=== PATIENT | female | born 1945 | race Caucasian/White ===

== ENCOUNTER 2023-09-16 22:44 | Inpatient (IN) | payer MEDICARE, OTHER, SELFPAY ==
[2023-09-16 19:00] VITALS: BP 163/88
--- NOTE | 2023-09-16 20:16 | ED.GENMED ---
History of Present Illness
General
Chief Complaint: DVT/Possible Blood Clot
Source: patient
Exam Limitations: none
Time Seen by Provider: 09/16/23 19:37
Travel History
Have you had any contact with someone who has COVID-19?: No
Do you have any symptoms of coronavirus? Fever > 100 degrees, chills, cough, shortness of breath, sore throat, loss of taste or smell, muscle aches, or headache?: No
History of Present Illness
History of Present Illness:
This is a 78 year old female that comes in with c/o right leg swelling and redness. State that she as just in [facility] Saturday - Saturday. States that she was discharge on Saturday. States that she told them on Saturday that her leg was more
swollen and increased redness. States that she was there for a UTI and is on Cefdinir 300mg. States that she is still having burning and that she has vomiting yesterday. States that she also has a headache. Denies any fever, chills, chest pain, SOB,
abd pain, nausea, diarrhea, dizziness.
Past History
Past History
ED Past Medical History: Asthma, CHF, HTN, NIDDM and Other (Neuropathy, PNA, DVT, Glaucoma, Sleep apnea)
ED Past Surgical History: Orthopedic (right knee replacement) and Tonsilectomy
Social History
Tobacco: Former smoker
Alcohol: None
Personal: Single
Living: with family
Review of Systems
Review of Systems
All Other Systems: ROS reviewed and negative except as documented in HPI and ROS
Constitutional: Reports no symptoms; Denies fever or chills
EENT: Reports no symptoms
Respiratory: Reports no symptoms; Denies cough or trouble breathing
Cardiac: Reports no symptoms; Denies chest pain
ABD/GI: Reports vomiting (Yesterday); Denies abdominal pain, nausea or diarrhea
: Reports dysuria and frequency; Denies urgency
Musculoskeletal: Reports edema (Right leg)
Skin: Reports other (redness of the right lower leg)
Neurological: Reports headache; Denies dizzy
Psychiatric: Reports no symptoms
Phy Exam
General Physical Exam
General Presentation: no apparent distress
General age: appears stated age
General Skin: warm and dry
General Habitus: elderly
General Mental: alert
General Hydration: dry mucous membranes
ENT Exam
ENT Exam: TM's normal, pharynx normal and neck supple
Eye Exam
Eye Exam: EOMI
Cardiovascular Exam
Cardiovascular Exam: regular rate/rhythm and normal peripheral pulses
Pulmonary Exam
Pulmonary Exam: lungs clear, no respiratory distress, no rales, chest non tender, no crackles, no rhonchi, no wheezing and no cough
Gastrointestinal Exam
Gastrointestinal Exam: normal bowel sounds, non tender, soft, no organomegaly, no pulsatile mass and non distended
Musculoskeletal Exam
Musculoskeletal Exam: full ROM and edema (of the right foot and lower leg +1pitting, )
Skin Exam
Skin Exam: normal color, warm/dry, no petechia, redness (of the right lower leg into the medial aspect of the posterior thigh. ) and other (Small healing wound on the right lateral heel)
Psychiatric Exam
Psychiatric Exam: normal mood/affect
Course
Orders/Labs/Results
Orders:
Orders
09/16/23 20:15
US Legs, Right [US Periph Venous LOWER Ext RT] Urgent
Comment:
Reason For Exam: Increased swelling, redness
09/16/23 20:19
Urinalysis Reflex To Culture Urgent
09/16/23 20:37
CMP [Comprehensive Metabolic Panel] Urgent
Complete Blood Count/No Diff Urgent
Lactic Acid Urgent
PT/INR [Prothrombin Time] Urgent
Blood Culture Q30M
CARIN Source: Blood/Venous
Specimen Description:
09/16/23 21:30
Blood Culture Q30M
CARIN Source: Blood/Venous
Specimen Description:
09/16/23 21:55
Piperacillin/Tazo 3.375 Gram [Zosyn] 3.375 gram in 50 ml IV NOW
Vancomycin 1 Gram/200 ml [Vancocin] 1 gram in 200 ml IV NOW
Abnormal Lab Results
09/16/23
20:37
RBC 3.25 L 10^6/uL
(4.20-5.40)
Hgb 9.8 L g/dL
(12.0-16.0)
Hct 29.6 L %
(37.0-47.0)
RDW 14.6 H %
(11.5-14.5)
PT 21.4 H Sec
(11.4-14.6)
Chloride 108 H mmol/L
(98-107)
Carbon Dioxide 21 L mmol/L
(22-30)
BUN 36 H mg/dl
(7-17)
Creatinine 1.7 H mg/dL
(0.6-1.0)
Lactic Acid 2.1 H mmol/L
(0.7-2.0)
Albumin 3.3 L g/dl
(3.5-5.0)
09/16/23 20:37
09/16/23 20:37
H/h low. PT 21.4 with INR 1.87, Dehydration. renal insufficiency, Lactic acid slightly elevated at 2.1,
Vital Signs
Initial and Last Documented VS:
Initial Vital Signs
Temp Pulse Resp BP Pulse Ox
97.8 F 70 18 163/88 98
09/16/23 19:00 09/16/23 19:00 09/16/23 19:00 09/16/23 19:00 09/16/23 19:00
Last Documented Vital Signs
Temp Pulse Resp BP Pulse Ox
97.8 F 84 25 156/63 97
09/16/23 19:00 09/16/23 20:45 09/16/23 20:45 09/16/23 20:44 09/16/23 20:45
MDM/Problems Addressed
Differential Diagnosis Includes:
Cellulitis, DVT, UTI
MDM/Problems Addressed:
This is a 78 year old female that comes in with c/o right leg swelling and increased redness. States that she was just discharged from [facility] on Saturday. States that she told them on Saturday that she has increased swelling and it was starting to
get more red but they did not listen. States that she also had a UTI and is on Cefdinir for the UTI but feels that this is not helping.
Will get labs, Urine and US
Back into see patient. Explained that her US is negative for DVT. This looks to be Cellulitis. Will start patient on antibiotics and admit. Hospitalist notified.
Chronic conditions affecting care: Other (history of DVT)
Acute Exacerbation and/or Progression of Chronic Illness:
NA
*Radiology
Radiology exam reviewed: radiology read reviewed (US= NO evidence of deep venous thrombosis of the right lower extremity. )
*Pulse Oximetry
Patient hypoxic: no
*EKG
Interpreted by ED Provider?: NA
Rate: EKG- N/A
*Drawing Supervisor Interpretation
Rate: normal
Heart Rate: 76
Rhythm: sinus
*Critical Care Note
Total Time (30-74mins, 75-104mins- exclusive of procedures): Not Applicable
ED Attending Note
-
Portions of this chart may have been created with voice recognition software.� Occasional wrong word or��sound alike� substitutions may have occurred due to the inherent limitations of voice recognition software.
Discharge Plan
Departure
Patient Disposition: Admit
Date of Disposition: 09/16/23
Time of Disposition: 21:59
Admit to: Med/Surg
Presentation/result/management discussed w/ accepting MD/DO: Hospitalist
Patient with high blood pressure during this ER visit?: Yes
Condition: Good
Covid-19: Not Applicable
Discharge Problem:
Cellulitis of leg, right
Referrals:
PRIVATE,PHYSICIAN [Family Provider] -
Interventions
Interventions:
*Risk Screen - Suicide Last Done: 09/16/23 19:00
*Neglect/Abuse Screening Last Done: 09/16/23 19:00
ED- Fall Risk Assessment Last Done: 09/16/23 20:20
ED- Cardiac Assessment Last Done: 09/16/23 20:20
ED-Musculoskeletal Assessment Last Done: 09/16/23 20:20
ED- Neurological Assessment Last Done: 09/16/23 20:20
ED- Pulmonary Assessment Last Done: 09/16/23 20:20
ED-Peripheral Vascular Assessment Last Done: 09/16/23 20:52
ED-Skin Assessment Last Done: 09/16/23 20:20
[2023-09-16 20:44] VITALS: BP 156/63
[2023-09-16 20:45] LABS: Hematocrit 29.6 % (37.0-47.0); Hemoglobin 9.8 g/dL (12.0-16.0); Mean Corp Hgb Conc. 33.1 g/dL (33.0-37.0); Mean Corpuscular Hgb 30.2 pg (27.0-31.0); Mean Corpuscular Volume 91.1 fL (81.0-99.0); Mean Platelet Volume 8.7 fL (7.4-10.4); Platelet Count 266 10^3/uL (130-400); Red Blood Cell Count 3.25 10^6/uL (4.20-5.40); Red Cell Dist. Width 14.6 % (11.5-14.5); White Blood Cell Count 8.3 10^3/uL (4.8-10.8)
[2023-09-16 20:49] VITALS: BMI 44.6
[2023-09-16 20:58] LABS: INR 1.87; PT 21.4 Sec (11.4-14.6)
[2023-09-16 21:01] LABS: Lactic Acid 2.1 mmol/L (0.7-2.0)
[2023-09-16 21:03] LABS: ALT (SGPT) 19 U/L (0-35); AST (SGOT) 33 U/L (14-36); Albumin 3.3 g/dl (3.5-5.0); Alkaline Phosphatase 72 U/L (38-126); Blood Urea Nitrogen 36 mg/dl (7-17); Calcium 8.9 mg/dl (8.4-10.2); Carbon Dioxide 21 mmol/L (22-30); Chloride 108 mmol/L (98-107); Estimated Creatinine Clearance 29 ml/min; Glucose 98 mg/dl (70-99); Potassium 4.5 mmol/L (3.5-5.1); Sodium 137 mmol/L (135-145); Total Bilirubin 0.5 mg/dl (0.2-1.3); Total Protein 6.3 g/dl (6.3-8.2); eGFR 30.89
[2023-09-16 21:54] VITALS: BP 128/58
[2023-09-16 22:00] VITALS: BP 119/53
[2023-09-16] MEDS: ZOSYN 50 IV (22:04)
--- NOTE | 2023-09-16 22:13 | HPS.HSE ---
Family Physician
-
Family Physician: PHYSICIAN PRIVATE
Chief Complaint
-
Swollen red Rt Leg
History of Present Illness
78F HX CHF, HTN, T2DM with neuropathy , DVT pw paifull swollen red Rt Callie
She was admitted to [facility] Saturday09/09/23 - 09/13/23Saturday for UTI and is on Cefdinir 300mg
Reports is still having dysuria and vomiting yesterday.
ROS
Denies any fever, chills, chest pain, SOB, abd pain, nausea, diarrhea, dizziness.
Medical History
Past Medical History
Past Medical History: Reports Other
Additional Past Medical History:
Asthma, CHF, HTN, NIDDM and Other (Neuropathy, PNA, DVT, Glaucoma, Sleep apnea)
Past Surgical History: Reports Other
Additional Past Surgical History:
Orthopedic (right knee replacement) and Tonsillectomy
Social History
Tobacco: Former Smoker
Alcohol: None
Personal: Single
Living: With Family
Family History
Family History: Not pertinent
Allergies / Home Medications
Allergies reflects when Allergies were last updated in [facility].
Home Medications with original date entered in [facility]
Allergy/Medication List:
Allergies
Allergy/AdvReac Type Severity Reaction Status Date / Time
Iodinated Contrast Media Allergy Unknown Verified 09/16/23 19:08
If medication reconciliation has not been performed, why?: Medication List N/A
Review of Systems
-
Constitutional: Reports No Symptoms
EENT: Reports No Symptoms
Respiratory: Reports No Symptoms
Cardiac: Reports No Symptoms
Abdomen/GI: Reports No Symptoms
: Reports No Symptoms
Musculoskeletal: Reports No Symptoms
Skin: Reports See HPI
Neurological: Reports No Symptoms
Endocrine: Reports No Symptoms
Hematologic/Lymphatic: Reports No Symptoms
Psych: Reports No Symptoms
Physical Exam
Vital Signs
Vital Signs
Temp Pulse Resp BP Pulse Ox
97.8 F 84 25 156/63 97
09/16/23 19:00 09/16/23 20:45 09/16/23 20:45 09/16/23 20:44 09/16/23 20:45
Physical Exam
General: Other (see below )
Laboratory Results
-
09/16/23 20:37
09/16/23 20:37
Laboratory Results
PT 21.4 Sec (11.4-14.6) H 09/16/23 20:37
INR 1.87 09/16/23 20:37
Lactic Acid 2.1 mmol/L (0.7-2.0) H 09/16/23 20:37
Total Bilirubin 0.5 mg/dl (0.2-1.3) 09/16/23 20:37
AST 33 U/L (14-36) 09/16/23 20:37
ALT 19 U/L (0-35) 09/16/23 20:37
Alkaline Phosphatase 72 U/L (38-126) 09/16/23 20:37
Data Reviewed
-
Ultrasound: Report Reviewed by me
Lab Data: Labs Reviewed by me
Old Records: Reviewed
Impression/Plan
-
Reviewed VS: afebrile BP 160/85--> 155/65
BMI 44
PE
Gen: NAD
HEENT: anicteric
Neck: supple
Lungs: symmetric AE
Cor: RRR S1 S2
Abdomen: soft benign abdomen
DRESSMAKER GARMENT FITTER:
MS: Rt Callie pitting edema
Derm: redness of the right lower leg into the medial aspect of the posterior thigh.(Small healing wound on the right lateral heel
Psych: nl mood
Data
nl WCC
Hgb 9.8
Cl 108
CO2 21
BUN 36
Cr 1.7
LA 2.1
Alb 3.3
BCx sent
Rt Callie US
No evidence of deep venous thrombosis of the right lower extremity.
No prior hospitalist admission:
ASSESSMENT & PLAN
Pending Rx reconciliation
Cellulitis of the Rt Callie up to thigh to the thigh.
NEG DVT
- cont IV vanco and IV Zosyn
DM with peripheral neuropathy
- add ISS low
Renal insufficiency - acute vs. acute on CKD
POS LA without evidence of sepsis
- Trend LA
Class III Obesity
HX MICKIE
DVT Px: LMWH dose per GFR
Code: Full
IP MS
[2023-09-16 22:29] LABS: Urine Albumin 1+ (Neg - Trace); Urine Bilirubin Negative (Negative); Urine Character Slightly Cloudy (Clear); Urine Color Yellow; Urine Glucose Negative (Negative); Urine Ketone Negative (Negative); Urine Leukocyte 2+ (Negative); Urine Nitrite Negative (Negative); Urine Occult Blood 4+ (Negative); Urine Specific Gravity 1.015 (<1.030); Urine Urobilinogen Negative (Neg - 1+)
[2023-09-16 22:38] LABS: Urine Squamous Cell 0-2 /LPF (Few)
[2023-09-16 22:39] LABS: Urine Red Blood Cell 16-20 /HPF (0-2); Urine White Cell >100 /HPF (0-5)
[2023-09-16] MEDS: VANCOCIN 200 IV (22:42)
[2023-09-16 23:00] VITALS: BP 138/63
[2023-09-16] MEDS: VANCOCIN HCL 500 MG 100 IV (23:42)
[2023-09-16 23:53] VITALS: BMI 44.6
[2023-09-16 23:57] VITALS: BP 168/79; BMI 43.5
[2023-09-16 23:57] LABS: Lactic Acid 1.2 mmol/L (0.7-2.0)
[2023-09-17 00:15] LABS: Glucose - Point of Care 104 mg/dl (70-99)
[2023-09-17] MEDS: NEURONTIN 600 MG PO ×2 (02:46→08:07)
[2023-09-17] MEDS: TYLENOL 325 MG PO ×2 (02:46→21:57)
[2023-09-17 04:00] VITALS: BP 123/56
[2023-09-17] MEDS: ZOSYN 50 IV ×2 (04:46→09:51)
[2023-09-17] MEDS: FLUSH (NSS) 2 FLUSH IV (04:51)
[2023-09-17 06:00] VITALS: BMI 43.5
[2023-09-17 06:32] LABS: Blood Urea Nitrogen 33 mg/dl (7-17); Calcium 8.8 mg/dl (8.4-10.2); Carbon Dioxide 27 mmol/L (22-30); Chloride 104 mmol/L (98-107); Estimated Creatinine Clearance 29 ml/min; Glucose 120 mg/dl (70-99); Potassium 3.9 mmol/L (3.5-5.1); Sodium 137 mmol/L (135-145); eGFR 30.89
[2023-09-17 06:53] LABS: Hematocrit 26.7 % (37.0-47.0); Hemoglobin 8.7 g/dL (12.0-16.0); Mean Corp Hgb Conc. 32.6 g/dL (33.0-37.0); Mean Corpuscular Hgb 30.4 pg (27.0-31.0); Mean Corpuscular Volume 93.4 fL (81.0-99.0); Mean Platelet Volume 9.2 fL (7.4-10.4); Platelet Count 259 10^3/uL (130-400); Red Blood Cell Count 2.86 10^6/uL (4.20-5.40); Red Cell Dist. Width 14.5 % (11.5-14.5); White Blood Cell Count 8.1 10^3/uL (4.8-10.8)
[2023-09-17 07:00] VITALS: BP 124/67
[2023-09-17 07:19] LABS: Hepatitis C Antibody Negative (Negative)
[2023-09-17] MEDS: COREG 25 MG PO (08:07)
[2023-09-17] MEDS: ZETIA 10 MG PO (08:07)
[2023-09-17] MEDS: CYMBALTA DELAYED RELEASE 20 MG PO (08:07)
[2023-09-17] MEDS: DESENEX/MITRAZOL/ZEASORB 1 APPLIC TOPICAL ×2 (08:08→19:55)
[2023-09-17] MEDS: PEPCID 20 MG PO (08:08)
[2023-09-17] MEDS: ALPHAGAN 0.2% EYE DROPS 1 DROP BOTH EYES ×2 (08:16→19:54)
[2023-09-17 08:19] LABS: Glucose - Point of Care 112 mg/dl (70-99)
[2023-09-17] MEDS: NOVOLOG FLEXPEN-LOW RESISTANCE SC (08:20)
[2023-09-17 08:31] LABS: Glycohemoglobin (HgbA1c) 8.9 % (4.0-5.6)
--- NOTE | 2023-09-17 09:54 | W.PN.HOSP.TC ---
Today's Communication/Plan
-
non-con CT A/P
urine studies
change abx to vanc/cefepime
RLE elevation
F/U cultures
Assessment / Plan
Assessment / Plan
Ms. Ayanna Thakur is a 78 yo woman with hx HF, HTN, DM II, DVT, recent admission 09/09-09/13 to [place] for UTI (discharged on Cefdinir) presents to ER wtih persistent dysuria and vomiting. She was found to have RLE cellulitis.
Cellulitis of the Rt Callie
-US negative for DVT
-continue IV Vancomycin; change to cefepime
-RLE elevation
-appreciate wound care
UTI
-recent treatment with Cefdinir with persistent symptoms on arrival (now patient denies); UA remains inflamed
-will obtain non-con CT
-F/U final cultures
-IV Cefepime as above
DM with peripheral neuropathy
- add ISS low
HTN
-INTELLIGENCE OPERATIONS SPECIALIST Coreg
-hold INTELLIGENCE OPERATIONS SPECIALIST Sacubitril-Valsartan for now
Heart Failure unknown EF
-on lasix 20mg PO BID at home
Renal insufficiency - acute vs.� acute on CKD
-obtain prior records
-CT non-con as above
-F/U urine studies
POS LA without evidence of sepsis
-resolved
HLD
-INTELLIGENCE OPERATIONS SPECIALIST Statin
Class III Obesity
HX MICKIE
DVT Px: LMWH dose per GFR
Code: Full
IP MS
Anticipated Discharge: 24 - 48 hours
Subjective/Interval History
-
Date of Service: September 17, 2023
Objective Data
-
Labs:
Laboratory Results
09/17/23
05:23
WBC 8.1
Hgb 8.7 L
Hct 26.7 L
Plt Count 259
Sodium 137
Potassium 3.9
Chloride 104
Carbon Dioxide 27
BUN 33 H
Creatinine 1.7 H
Glucose 120 H
Calcium 8.8
Vital Signs:
Vital Signs
Temp Pulse Resp BP Pulse Ox
98.5 F 77 18 124/67 99
09/17/23 07:00 09/17/23 07:00 09/17/23 07:00 09/17/23 07:00 09/17/23 07:00
I&O
09/16/23 09/17/23 09/18/23
06:59 06:59 06:59
Intake Total 470 / 470
Balance 470 / 470
--- NOTE | 2023-09-17 10:11 | PHA.VAN.IN ---
Assessment
- Assessment
Renal Function: Unknown baseline
Concomitant Antimicrobials: cefepime
Plan
- Plan
Initial / Loading Dose: 1500mg 09/16 - 1g 22:42 PLUS 500mg 23:42
Maintenance Regimen: dosing by level - give additional 1000mg (10mg/kg) to maintain levels today
Monitoring: random 09/18 06
Pharmacokinetics Vancomycin I
- -
Patient Age: 78
Patient Sex: Female
Vancomycin Day #: 1
Indication: Skin And Soft Tissue
Requesting Provider: Dr. Solis
Pertinent Antimicrobial Allergies:
no pertinent antibiotic allergies
Height / Weight:
Height 4 ft 11 in
Actual Weight 97.692 kg
Pertinent Past Medical History: BMI ~44
- Vital Signs / Lab Results
Temp Pulse Resp BP Pulse Ox
98.5 F 77 18 124/67 99
09/17/23 07:00 09/17/23 07:00 09/17/23 07:00 09/17/23 07:00 09/17/23 07:00
Lab Results - Hematology
09/16/23 09/17/23
20:37 05:23
WBC 8.3 8.1
Lab Results - Chemistry
09/16/23 09/17/23
20:37 05:23
BUN 36 H 33 H
Creatinine 1.7 H 1.7 H
Estimated Creat Clear 29 29
Albumin 3.3 L
09/16/23 09/16/23
20:37 23:33
Lactic Acid 2.1 H 1.2
Lab Results - Urine
09/16/23
22:22
Urine Nitrite (Reflex) Negative
Leukocyte Esterase Rfl 2+ A
Urine WBC (Reflex) >100 A
Ur Squamous Epith Cells 0-2
--- NOTE | 2023-09-17 10:28 | WOUNDNOTE ---
WON RN note: Patient admitted with Cellulitis of R leg.
See H&P for complete history.
PMH: NIDDM,UTI,COVID X2,Cellulitis of legs,venous stasis, R lateral heel ulcer, DVT,CHF,Obesity.
Wound Location and type/assessment: Patient admitted with: Healing ulcer on R lateral heel, suspect diabetic and that it was a callus to begin with. Wound assessed along with Dr. Hidalgo at bedside. Small shallow ulcer, scant white fibrin at base,
dry callus surrounding, mild maceration. Patient states wound much smaller and she has been going to [facility] for treatment of R heel wound. Was using dry dressing changed q other day with assist from sister and nephew who live nearby.
Patient states this wound has healed in past and now reopened. No longer using offloading boots to offload wound, patient states at [facility] in [place] said is not needed anymore. Has worn compression in past but not recently. PVU was negative for
DVT, + pedal pulses. L heel and sacrum are intact.
Appetite: Good.
Pressure redistribution devices in place: Accumax, patient is independent with ambulating using a walker.
Plan: Applied skin prep to periwound, honey gel to wound, adaptic and silicone foam. Beto wraps knee high both legs. Protective foam applied to L heel. Will order mineral oil to start tomorrow. Applied air chair cushion on pillow under calves to
offload heels. Instructed patient to take home upon discharge to use for offloading.
Confirmed orders with hospitalist and updated nurse Sunni. Updated care plan and will follow as needed.
Note to case management of equipment requested for discharge: None patient said family assists.
Recommend follow up at [place] wound care center upon discharge as scheduled.
[2023-09-17 11:02] LABS: Urine Albumin 1+ (Neg - Trace); Urine Bilirubin Negative (Negative); Urine Character Very Cloudy (Clear); Urine Color Yellow; Urine Glucose Negative (Negative); Urine Ketone Negative (Negative); Urine Leukocyte 2+ (Negative); Urine Nitrite Negative (Negative); Urine Occult Blood 4+ (Negative); Urine Specific Gravity 1.015 (<1.030); Urine Urobilinogen Negative (Neg - 1+)
[2023-09-17 11:12] LABS: Urine Squamous Cell 16-20 /LPF (Few)
[2023-09-17 11:14] LABS: Urine White Cell >100 /HPF (0-5)
[2023-09-17 11:28] LABS: Urine Sodium 31 mmol/L (30-90)
[2023-09-17] MEDS: VANCOCIN 200 IV (11:59)
[2023-09-17 12:11] LABS: Glucose - Point of Care 251 mg/dl (70-99)
--- NOTE | 2023-09-17 12:55 | CM ---
Patient seen at bedside. Patient states that she lives in a condo apartment with 4 steps to enter. Patient sister and nephew live across the way about 30 seconds. Patient has a walker cane, shower chair and would like to return home with [employer] [facility]
to restart. Patient was at [facility] several times recently and per patient they decided to 'try [facility], this time'. Patient PCP is dr. Martinez and she uses the [facility] in [place]. CM will continue to follow for discharge planning needs.
Plan; home with Arnoldo GLEASON; referral needed.
[2023-09-17] MEDS: COUMADIN 5 MG PO (13:06)
[2023-09-17] MEDS: NOVOLOG FLEXPEN-LOW RESISTANCE 3 UNITS SC (13:23)
[2023-09-17 14:49] VITALS: BP 125/49; BP 154/63; PULSE 77
[2023-09-17 15:00] VITALS: BP 143/61
[2023-09-17 15:02] VITALS: BMI 43.5
[2023-09-17] MEDS: STERILE WATER FOR INJECTION 10 ML IV (15:54)
[2023-09-17] MEDS: MAXIPIME 1000 MG IV (15:55)
[2023-09-17 16:35] LABS: Glucose - Point of Care 356 mg/dl (70-99)
[2023-09-17] MEDS: HUMULIN N KWIKPEN 5 UNITS SC (16:41)
[2023-09-17] MEDS: NOVOLOG FLEXPEN-LOW RESISTANCE 5 UNITS SC (17:18)
[2023-09-17] MEDS: CRESTOR 40 MG PO (17:19)
[2023-09-17] MEDS: HUMULIN N KWIKPEN 10 UNITS SC (17:41)
[2023-09-17] MEDS: NEURONTIN 300 MG PO (19:55)
[2023-09-17] MEDS: COREG 12.5 MG PO (19:55)
[2023-09-17 21:13] LABS: Glucose - Point of Care 346 mg/dl (70-99)
[2023-09-17] MEDS: XALATAN OPHTHALMIC SOLUTION 1 DROP BOTH EYES (21:54)
[2023-09-17] MEDS: NOVOLOG FLEXPEN 7 UNITS SC (22:05)
[2023-09-17 23:11] VITALS: BP 141/47
[2023-09-17 23:48] LABS: Glucose - Point of Care 299 mg/dl (70-99)
[2023-09-18] VITALS (7 sets, daily range): BP systolic 120–149; BP diastolic 43–55; BMI 43.6
--- NOTE | 2023-09-18 04:11 | DOWNTIME ---
There was a [employer] Client Architectural Representative Downtime on 09/18/2023 from 0111 to 09/18/2023 at 0405. Downtime documentation of patient's care, including medication administrations, has been reconciled in the electronic record per guidelines. Refer to the
patient's paper chart under the miscellaneous tab to see printed paper medication records and downtime forms.
[2023-09-18 06:07] LABS: Hemoglobin 8.4 g/dL (12.0-16.0); Mean Corp Hgb Conc. 33.6 g/dL (33.0-37.0); Mean Corpuscular Hgb 30.8 pg (27.0-31.0); Mean Corpuscular Volume 91.6 fL (81.0-99.0); Mean Platelet Volume 8.9 fL (7.4-10.4); Platelet Count 258 10^3/uL (130-400); Red Blood Cell Count 2.73 10^6/uL (4.20-5.40); Red Cell Dist. Width 14.6 % (11.5-14.5); White Blood Cell Count 6.6 10^3/uL (4.8-10.8)
[2023-09-18 06:23] LABS: INR 1.94
[2023-09-18 06:28] LABS: Blood Urea Nitrogen 35 mg/dl (7-17); Calcium 8.6 mg/dl (8.4-10.2); Carbon Dioxide 25 mmol/L (22-30); Chloride 104 mmol/L (98-107); Estimated Creatinine Clearance 27 ml/min; Glucose 203 mg/dl (70-99); Magnesium 1.9 mg/dl (1.6-2.3); Potassium 4.4 mmol/L (3.5-5.1); Sodium 135 mmol/L (135-145); eGFR 28.84
[2023-09-18 08:06] LABS: Vancomycin Random 26.4 ug/ml
--- NOTE | 2023-09-18 08:11 | PHA.VAN.FU ---
Vancomycin Assessment / Plan
- Assessment
Renal Function: Stable
WBC's are: WNL
In the past 24 hrs, patient has been: Afebrile
Concomitant Antimicrobials: cefepime
- Assessment - Therapeutic Drug Monitoring
Random Level: 26.4 - drawn ~18H after previous dose of 1000mg
- Dosing Plan
Dosing by Level: Hold off on dosing today
- Monitoring Plan
Random Level: 09/19 06
- Follow Up
Pharmacy will continue to follow.
Vancomycin Follow UP
- -
Patient Age: 78
Patient Sex: Female
Vancomycin Day #: 2
Indication: Skin And Soft Tissue
Requesting Provider: Dr. Solis
Pertinent Antimicrobial Allergies:
no pertinent antibiotic allergies
Height / Weight:
Height 4 ft 11 in
Actual Weight 97.749 kg
Pertinent Past Medical History: BMI ~44
- Vital Signs / Lab Results
Temp Pulse Resp BP Pulse Ox
98.1 F 72 16 141/47 98
09/17/23 23:11 09/17/23 23:11 09/17/23 23:11 09/17/23 23:11 09/17/23 23:11
Lab Results - Hematology
09/16/23 09/17/23 09/18/23
20:37 05:23 05:45
WBC 8.3 8.1 6.6
Lab Results - Chemistry
09/16/23 09/17/23 09/18/23
20:37 05:23 05:45
BUN 36 H 33 H 35 H
Creatinine 1.7 H 1.7 H 1.8 H
Estimated Creat Clear 29 29 27
Albumin 3.3 L
09/16/23 09/16/23
20:37 23:33
Lactic Acid 2.1 H 1.2
Lab Results - Urine
09/17/23
10:49
Urine Nitrite (Reflex) Negative
Leukocyte Esterase Rfl 2+ A
Ur Squamous Epith Cells 16-20
Microbiology Results
09/16/23 21:30 Blood Culture - Preliminary
Blood/Venous No Growth in 24 hours- Final report to follow
09/16/23 20:37 Blood Culture - Preliminary
Blood/Venous No Growth in 24 hours- Final report to follow
Therapeutic Drug Monitoring
Random Vancomycin 26.4 ug/ml 09/18/23 05:45
[2023-09-18 08:32] LABS: Glucose - Point of Care 213 mg/dl (70-99)
[2023-09-18] MEDS: NEURONTIN 300 MG PO ×2 (08:38→22:01)
[2023-09-18] MEDS: PEPCID 20 MG PO (08:38)
[2023-09-18] MEDS: CYMBALTA DELAYED RELEASE 20 MG PO (08:38)
[2023-09-18] MEDS: COREG 12.5 MG PO ×2 (08:38→20:03)
[2023-09-18] MEDS: HYDROPHOR 1 APPLIC TOPICAL (08:39)
[2023-09-18] MEDS: DESENEX/MITRAZOL/ZEASORB 1 APPLIC TOPICAL ×2 (08:39→20:03)
[2023-09-18] MEDS: ALPHAGAN 0.2% EYE DROPS 1 DROP BOTH EYES ×2 (08:39→20:03)
[2023-09-18] MEDS: HUMULIN N KWIKPEN 20 UNITS SC ×2 (08:41→17:43)
[2023-09-18] MEDS: NOVOLOG FLEXPEN 3 UNITS SC (08:42)
[2023-09-18] MEDS: NOVOLOG FLEXPEN-LOW RESISTANCE 2 UNITS SC (08:43)
--- NOTE | 2023-09-18 09:33 | W.PN.HOSP.TC ---
Today's Communication/Plan
-
IV Vanc for cellulitis
IV Ceftriaxone for UTI
trial of IV lasix (FeNa < 1% and patient appears hypervolemic on exam)
Assessment / Plan
Assessment / Plan
Ms. Ayanna Thakur is a 78 yo woman with hx HF, HTN, DM II, DVT, recent admission 09/09-09/13 to [place] for UTI (discharged on Cefdinir) presents to ER wtih persistent dysuria and vomiting. She was found to have RLE cellulitis.
Cellulitis of the Rt Callie
-US negative for DVT
-continue IV Vancomycin
-RLE elevation
-appreciate wound care
UTI
-recent treatment with Cefdinir. culture grew yeast and patient denies dysuria. will resume IV Ceftriaxone
-non-con CT without obstructive uropathy
-no need to treat yeast in urine - patient denies current symptoms
DM with peripheral neuropathy
-patient on 70/30 60 units/30 units at home
-NPH here with pre-meal aspart
-add ISS low
-A1c 8.9%
HTN
-ARTIFICIAL PLASTIC EYE MAKER Coreg
-hold ARTIFICIAL PLASTIC EYE MAKER Sacubitril-Valsartan for now
Heart Failure unknown EF
-on lasix 20mg PO BID at home
Renal insufficiency - acute vs.� acute on CKD
-FeNa < 1%
-obtain prior records
-CT non-con as above without hydro
-hold ARTIFICIAL PLASTIC EYE MAKER Sacubitril-Valsartan
-patient is not hypovolemic - she is puffy on exam - trial of lasix 40mg IV x 1
POS LA without evidence of sepsis
-resolved
HLD
-ARTIFICIAL PLASTIC EYE MAKER Statin
Class III Obesity
HX MICKIE
DVT Px: LMWH dose per GFR
Code: Full
IP MS
Anticipated Discharge: 24 - 48 hours
Subjective/Interval History
-
Date of Service: September 18, 2023
she feels her right leg is improving
no further dysuria
Objective Data
-
Labs:
Laboratory Results
09/18/23
05:45
WBC 6.6
Hgb 8.4 L
Hct 25.0 L
Plt Count 258
PT 22.0 H
INR 1.94
Sodium 135
Potassium 4.4
Chloride 104
Carbon Dioxide 25
BUN 35 H
Creatinine 1.8 H
Glucose 203 H
Calcium 8.6
Vital Signs:
Vital Signs
Temp Pulse Resp BP Pulse Ox
98.2 F 75 18 149/55 97
09/18/23 07:00 09/18/23 07:00 09/18/23 07:00 09/18/23 07:00 09/18/23 07:00
I&O
09/17/23 09/18/23 09/19/23
06:59 06:59 06:59
Intake Total 470 / 470 2059
Output Total 100 / 100
Balance 470 / 470 1959 / 1959
Review of Systems
-
History Source: Patient
All other systems: Reviewed and negative
Physical Exam
-
General: No Apparent Distress
HEENT: PERRLA
Respiratory: Clear to Auscultation; Negative Wheezes
Cardiac: Regular Rhythm and S1/S2
GI: Soft and Nontender
Musculoskeletal: Edema, Right Upper Extrem, Edema, Left Upper Extrem and Other (RLE with persistent swelling and erythema but improving )
Skin: Warm and Dry
Neuro: AO x 3
Psych: Calm
Data Reviewed
-
Diagnostic Radiology: Report Reviewed by me
Labs: Labs Reviewed by me
[2023-09-18] MEDS: LASIX 40 MG IV (10:17)
[2023-09-18 12:08] LABS: Glucose - Point of Care 339 mg/dl (70-99)
[2023-09-18] MEDS: NOVOLOG FLEXPEN-LOW RESISTANCE 4 UNITS SC (12:37)
[2023-09-18] MEDS: NOVOLOG FLEXPEN 6 UNITS SC ×2 (12:37→17:44)
--- NOTE | 2023-09-18 15:35 | CM ---
patient with rle cellulitis on iv anco,iv rocephin for uti.on po lasix for hf.patient will dc home with gurpreet hayes.seen by pt who rec home with [facility].
Plan:discharge home with gurpreet hayes/home pt.
[2023-09-18] MEDS: STERILE WATER FOR INJECTION 10 ML IV (16:05)
[2023-09-18] MEDS: ROCEPHIN 1000 MG IV (16:08)
[2023-09-18 16:38] LABS: Glucose - Point of Care 286 mg/dl (70-99)
[2023-09-18] MEDS: NOVOLOG FLEXPEN-LOW RESISTANCE 3 UNITS SC (17:45)
[2023-09-18] MEDS: COUMADIN 5 MG PO (17:47)
[2023-09-18] MEDS: CRESTOR 40 MG PO (17:48)
[2023-09-18] MEDS: ZETIA 10 MG PO (17:48)
[2023-09-18 21:12] LABS: Glucose - Point of Care 212 mg/dl (70-99)
[2023-09-18] MEDS: TYLENOL 325 MG PO (22:01)
[2023-09-18] MEDS: XALATAN OPHTHALMIC SOLUTION 1 DROP BOTH EYES (22:02)
[2023-09-19 02:54] VITALS: BP 99/44
[2023-09-19 06:00] VITALS: BMI 43.4
[2023-09-19 07:00] VITALS: BP 119/68
[2023-09-19] MEDS: DESENEX/MITRAZOL/ZEASORB 1 APPLIC TOPICAL (08:09)
[2023-09-19] MEDS: CYMBALTA DELAYED RELEASE 20 MG PO (08:09)
[2023-09-19] MEDS: NEURONTIN 300 MG PO (08:10)
[2023-09-19] MEDS: PEPCID 20 MG PO (08:11)
[2023-09-19] MEDS: HYDROPHOR 1 APPLIC TOPICAL (08:11)
[2023-09-19] MEDS: COREG 12.5 MG PO (08:11)
[2023-09-19] MEDS: ALPHAGAN 0.2% EYE DROPS 1 DROP BOTH EYES (08:12)
[2023-09-19 08:20] LABS: INR 2.13; PT 24.1 Sec (11.4-14.6)
[2023-09-19 08:21] LABS: Glucose - Point of Care 159 mg/dl (70-99)
[2023-09-19 08:24] LABS: Blood Urea Nitrogen 37 mg/dl (7-17); Calcium 9.1 mg/dl (8.4-10.2); Carbon Dioxide 26 mmol/L (22-30); Chloride 104 mmol/L (98-107); Estimated Creatinine Clearance 27 ml/min; Glucose 156 mg/dl (70-99); Potassium 4.7 mmol/L (3.5-5.1); Sodium 137 mmol/L (135-145); eGFR 28.84
[2023-09-19 08:31] LABS: Vancomycin Random 19.1 ug/ml
[2023-09-19] MEDS: HUMULIN N KWIKPEN 40 UNITS SC (08:34)
[2023-09-19] MEDS: NOVOLOG FLEXPEN 6 UNITS SC ×2 (08:35→12:41)
[2023-09-19] MEDS: NOVOLOG FLEXPEN-LOW RESISTANCE 1 UNITS SC (08:35)
--- NOTE | 2023-09-19 09:03 | PHA.VAN.FU ---
Vancomycin Assessment / Plan
- Assessment
Renal Function: Stable
In the past 24 hrs, patient has been: Afebrile
Concomitant Antimicrobials: ceftriaxone
- Assessment - Therapeutic Drug Monitoring
Random Level: 19.1 - drawn ~25.5H after previous level of 26.4
Calculated ke: 0.0127
Calculated half life (H): 54.7
- Dosing Plan
Dosing by Level: Hold off on dosing today
- Monitoring Plan
Random Level: 09/20 599
- Follow Up
Pharmacy will continue to follow.
Vancomycin Follow UP
- -
Patient Age: 78
Patient Sex: Female
Vancomycin Day #: 3
Indication: Skin And Soft Tissue
Requesting Provider: Dr. Solis
Pertinent Antimicrobial Allergies:
no pertinent antibiotic allergies
Height / Weight:
Height 4 ft 11 in
Actual Weight 97.386 kg
Pertinent Past Medical History: BMI ~44
- Vital Signs / Lab Results
Temp Pulse Resp BP Pulse Ox
97.9 F 76 18 119/68 99
09/19/23 07:00 09/19/23 07:00 09/19/23 07:00 09/19/23 07:00 09/19/23 07:00
Lab Results - Hematology
09/16/23 09/17/23 09/18/23
20:37 05:23 05:45
WBC 8.3 8.1 6.6
Lab Results - Chemistry
09/16/23 09/17/23 09/18/23
20:37 05:23 05:45
BUN 36 H 33 H 35 H
Creatinine 1.7 H 1.7 H 1.8 H
Estimated Creat Clear 29 29 27
Albumin 3.3 L
09/19/23
07:17
BUN 37 H
Creatinine 1.8 H
Estimated Creat Clear 27
Albumin
09/16/23 09/16/23
20:37 23:33
Lactic Acid 2.1 H 1.2
Microbiology Results
09/16/23 21:30 Blood Culture - Preliminary
Blood/Venous No Growth in 48 hours- Final report to follow
09/16/23 20:37 Blood Culture - Preliminary
Blood/Venous No Growth in 48 hours- Final report to follow
09/17/23 10:49 Urine Culture - Final
Urine Vidya albicans
09/16/23 22:22 Urine Culture - Final
Urine No Significant Growth
Therapeutic Drug Monitoring
Random Vancomycin 19.1 ug/ml 09/19/23 07:17
--- NOTE | 2023-09-19 10:09 | W.PN.HOSP.TC ---
Addendum entered and electronically signed by Skylar Hidalgo MD 09/20/23 14:37:
concern for CKD stage IIIb
-patient to follow up with her PCP
Original Note:
Today's Communication/Plan
-
OK for DC today
Assessment / Plan
Assessment / Plan
Ms. Ayanna Thakur is a 78 yo woman with hx HF, HTN, DM II, DVT, recent admission 09/09-09/13 to [facility] for UTI (discharged on Cefdinir) presents to ER wtih persistent dysuria and vomiting. She was found to have RLE cellulitis.
Cellulitis of the [place] [place]
-US negative for DVT
-continue IV Vancomycin --> transition to doxycline at DC (given patient became infected while on cephalosporin; hold off on bactrim given elevated creatinine)
-RLE elevation
-appreciate wound care
UTI
-recent treatment with Cefdinir. culture grew yeast and patient denies dysuria. now completed course - stop further cefdinir on DC
-non-con CT without obstructive uropathy
-no need to treat yeast in urine - patient denies current symptoms
DM with peripheral neuropathy
-patient on 70/30 60 units/30 units at home
-NPH here with pre-meal aspart
-add ISS low
-A1c 8.9%
-resume home dose at DC
HTN
-HUMAN CAPITAL CONSULTANT Coreg
-hold HUMAN CAPITAL CONSULTANT Sacubitril-Valsartan for now - BP has been OK
Heart Failure unknown EF
-on lasix 20mg PO daily at home --> resume
Renal insufficiency - acute vs.� acute on CKD
-FeNa < 1%
-obtain prior records
-CT non-con as above without hydro
-patient's creatinine has remained the same while in-patient - likely chronic
-hold HUMAN CAPITAL CONSULTANT Sacubitril-Valsartan until follows up with PCP
POS LA without evidence of sepsis
-resolved
HLD
-HUMAN CAPITAL CONSULTANT Statin
Class III Obesity
HX MICKIE
DVT Px: LMWH dose per GFR
Code: Full
IP MS
Anticipated Discharge: Today
Subjective/Interval History
-
Date of Service: September 19, 2023
feeling better
wants to go home
urinated a lot yesterday
leg feels better
Objective Data
-
Labs:
Laboratory Results
09/19/23
07:17
PT 24.1 H
INR 2.13
Sodium 137
Potassium 4.7
Chloride 104
Carbon Dioxide 26
BUN 37 H
Creatinine 1.8 H
Glucose 156 H
Calcium 9.1
Vital Signs:
Vital Signs
Temp Pulse Resp BP Pulse Ox
97.9 F 76 18 119/68 99
09/19/23 07:00 09/19/23 07:00 09/19/23 07:00 09/19/23 07:00 09/19/23 07:00
I&O
09/18/23 09/19/23 09/20/23
06:59 06:59 06:59
Intake Total 2059
Output Total 100 / 100
Balance 1959
Review of Systems
-
History Source: Patient
All other systems: Reviewed and negative
Physical Exam
-
General: No Apparent Distress
HEENT: PERRLA
Respiratory: Clear to Auscultation; Negative Wheezes
Cardiac: Regular Rhythm and S1/S2
GI: Soft and Nontender
Musculoskeletal: Edema, Right Upper Extrem, Edema, Left Upper Extrem and Other (RLE with persistent swelling and erythema but improving )
Skin: Warm and Dry
Neuro: AO x 3
Psych: Calm
Data Reviewed
-
Diagnostic Radiology: Report Reviewed by me
Labs: Labs Reviewed by me
--- NOTE | 2023-09-19 10:23 | W.DS.TRANS ---
DC Summary - [employer]
-
Discharge Instructions:
Discharge Diagnosis/Procedures left lower extremity cellulitis; acute versus
chronic kidney disease
Diet 2 Gram Sodium,Restrict fluids to 48 oz
Activity As tolerated
Driving Restrictions As prior to admission
Bathing Restrictions None
Blood Work BMP (to check kidney function) to be ordered by
your primary care doctor after appointment on
Saturday
INR to be checked as outpatient to monitor
warfarin levels.
Other Services PT,VN
Specialty Instructions Weigh Daily
Stop these medications: Sacubitril-Valsartan
Instructions:
Stand-Alone Forms:
Changes to Home Medications: Yes
Discharge Medications:
DC Medications w/original date entered in [employer]
acetaminophen 325 mg tablet 325 mg PO Q6H PRN pain 09/16/23
albuterol 90 mcg/actuation aerosol inhaler 90 mcg inhalation PRN PRN for wheezing 09/16/23
brimonidine 0.2 % eye drops 0.2 drp BOTH EYES BID Eye Condition 09/16/23
duloxetine 20 mg capsule,delayed release sprinkle 20 mg PO DAILY Pain 09/16/23
ezetimibe 10 mg tablet 10 mg PO QPM High Cholesterol 09/16/23
furosemide 20 mg tablet 20 mg PO DAILY Fluid Retention/Swelling 09/16/23
gabapentin 300 mg capsule 300 mg PO BID Neurological Condition 09/16/23
latanoprost 0.005 % eye drops 0.005 drp BOTH EYES HS Eye Condition 09/16/23
rosuvastatin 40 mg tablet 40 mg PO QPM High Cholesterol 09/16/23
carvedilol 12.5 mg tablet 12.5 mg PO BID Blood Pressure 09/17/23
insulin aspar prot-insulin aspart 100 unit/mL (70-30) subcutaneous pen (Novolog Mix 70-30FlexPen U-100) See Rx Instructions .Route .COMPLEX Diabetes 09/17/23
warfarin 2.5 mg tablet See Rx Instructions .Route .COMPLEX Blood Clot Prevention/Tx 02/20/24
doxycycline hyclate 100 mg capsule 100 mg PO Q12 #14 caps 09/19/23
miconazole nitrate 2 % topical powder (Miconazorb AF) 1 applic topical BID #85 grams 09/19/23
Home Medication Changes
You have completed your antibiotic course for your UTI while in the hospital (no need to take further Cefdinir at home).
You have 7 more days of Doxycycline for treatment of cellulitis of your leg. Keep your right leg raised as much as possible at home to help with swelling.
STOP TAKING Sacubitril-Valsartan until told to resume by your primary. This can affect kidney function and your blood pressure has been OK off of this medication. Your primary will likely obtain repeat blood tests to monitor your kidney function
after you leave the hospital.
Pending Results: No
[2023-09-19 11:00] VITALS: BP 100/45
--- NOTE | 2023-09-19 11:08 | CM ---
patient stable for dc home.faxed dc summary to [facility].patient signed imm letter.
[2023-09-19 11:35] VITALS: BP 100/45; PULSE 71; O2SAT 99
[2023-09-19] MEDS: VIBRAMYCIN 100 MG PO (11:38)
--- NOTE | 2023-09-19 11:47 | W.DCSUMMARY ---
Discharge Summary
Discharge Data
Date of Admission: 09/16/23
Date of Discharge: 09/19/23
-
Pending Results: No
Hospital Course
Discharging Physician : Dr. Skylar Hidalgo
Disposition : Home
Primary care physician :
Principal Discharge diagnosis : Right lower extremity cellulitis
Hospital Course :
Ms. Ayanna Thakur is a 78 yo woman with hx heart failure, unknown EF, HTN< DM II with neuropathy, DVT on coumadin, recent hospitalization at [facility] 09/09/23-09/13/23 for UTI discharged on Cefdinir presents wtih redness and swelling RLE. Triage vitals
significant for hypertension. Labs with creatinine 1.7, unknown baseline. RLE without DVT. She was admitted to medicine and started on IV antibiotics. Her RLE improved on IV Vancomycin. She is discharged with 7 more days of doxycycline. RLE
elevation stressed to patient.
She completed her course of antibiotics for UTI in hospital and denied further dysuria. Repeat urine culture grew yeast but this was likely contaminant.
Of note, patient's creatinine remained stable 1.7-1.8. Unknown baseline. CT A/P non-con without e/o obstruction or hydro. Her WEB DEVELOPMENT DIRECTOR Sacubitril-Valsartan is held until she follows up with her PCP. BP has been intermittently low normotensive off this
medication (BP 100/45 at 11AM day of discharge). SBP mainly 120's-140's. PCP to monitor renal function as outpatient, consider referral to nephrology.
She is resumed on her home insulin dosing at [place].
Time spent on discharge was 32 minutes.
Important imaging findings :
RLE US 09/16/23
IMPRESSION: No evidence of deep venous thrombosis of the right lower extremity.
Abdomen/Pelvis CT 09/17/23
IMPRESSION:
8 mm left renal pelvis calculus without katie hydronephrosis. Mild bilateral renal atrophy/cortical thinning. Evaluation for pyelonephritis is limited without contrast.
Urinary bladder is decompressed and not well evaluated. Cannot rule out cystitis.
Cholelithiasis.
Procedure findings :
Discharge Plan
-
Patient Disposition: Home (Routine Discharge)
Discharge Diagnosis/Procedures: left lower extremity cellulitis; acute versus chronic kidney disease
Condition: Fair
Diet: 2 Gram Sodium and Restrict fluids to 48 oz
Activity: As tolerated
Driving Restrictions: As prior to admission
Bathing Restrictions: None
Blood Work: BMP (to check kidney function) to be ordered by your primary care doctor after appointment on Saturday
INR to be checked as outpatient to monitor warfarin levels.
Other Services: VN and PT
Specialty Instructions: Weigh Daily- Call MD for wt gain/loss 3 lbs overnight/5 lbs in 1 week
Stop these medications:: Sacubitril-Valsartan
Activity Restrictions/Additional Instructions:
You have completed your antibiotic course for your UTI while in the hospital (no need to take further Cefdinir at home).
You have 7 more days of Doxycycline for treatment of cellulitis of your leg. Keep your right leg raised as much as possible at home to help with swelling.
STOP TAKING Sacubitril-Valsartan until told to resume by your primary. This can affect kidney function and your blood pressure has been OK off of this medication. Your primary will likely obtain repeat blood tests to monitor your kidney function
after you leave the hospital.
Wound Care Instructions
R lateral heel: clean with soap and water, skin prep to periwound, smear of honey gel to wound, adaptic and dry gauze, change q other day and prn drainage.
Mineral oil to skin on legs and feet daily
Beto wraps to both legs knee high daily, forefoot to below knee, can remove at bedtime. Or can use own compression stockings daily
Leg elevation when sitting in chair.
Follow up at [facility]
Referrals:
PRIVATE,PHYSICIAN [Family Provider] - in less than 1 week
Prescriptions:
New
miconazole nitrate [Miconazorb AF] 2 % Powder
1 applic topical BID Qty: 85 0RF
doxycycline hyclate 100 mg Capsule
100 mg PO Q12 Qty: 14 0RF
Continued
latanoprost 0.005 % Drops
0.005 drp BOTH EYES HS
Rx Instructions:
instill one drop in each eye hs
acetaminophen 325 mg Tablet
325 mg PO Q6H PRN (Reason: pain)
Rx Instructions:
prn for pain
brimonidine 0.2 % Drops
0.2 drp BOTH EYES BID
Rx Instructions:
instill one drop in each eye twice daily
gabapentin 300 mg Capsule
300 mg PO BID
furosemide 20 mg Tablet
20 mg PO DAILY
albuterol 90 mcg/actuation Aerosol
90 mcg INHALATION PRN PRN (Reason: for wheezing)
Patient Comments:
pt has not needed this lately
Rx Instructions:
2 puffs prn q4h for wheezing
ezetimibe 10 mg Tablet
10 mg PO QPM
duloxetine 20 mg Capsule, Delayed Rel Sprinkle
20 mg PO DAILY
Rx Instructions:
tk one capsule po daily
rosuvastatin 40 mg Tablet
40 mg PO QPM
carvedilol 12.5 mg tablet
12.5 mg PO BID
insulin asp prt-insulin aspart [Novolog Mix 70-30FlexPen U-100] 100 unit/mL (70-30) insulin pen
See Rx Instructions .ROUTE .COMPLEX
Rx Instructions:
60 units with breakfast and 30 units with dinner
warfarin 2.5 mg tablet
See Rx Instructions .ROUTE .COMPLEX
Rx Instructions:
warfarin 5mg on Saturday and Fridays, and 2.5mg on all other days
Discontinued
cefdinir 300 mg Capsule
300 mg PO BID
sacubitril-valsartan 24-26 mg Tablet
1 tab PO BID
Discharge Orders:
Discharge Patient (As Directed); Ordered 09/19/23
Ordered By: Skylar Hidalgo
[2023-09-19 12:21] LABS: Glucose - Point of Care 255 mg/dl (70-99)
[2023-09-19] MEDS: NOVOLOG FLEXPEN-LOW RESISTANCE 3 UNITS SC (12:42)
--- NOTE | 2023-09-19 12:46 | PN.CDI ---
CDI
- -
CDI:
Physician Documentation Request
Admit Date: 09/16/23 22:44
Dear Doctor Gwen,
Progress note states 'Renal insufficiency - acute vs.� acute on CKD- patient's creatinine has remained the same while in-patient - likely chronic '
09/16/23 09/17/23 09/18/23
20:37 05:23 05:45
eGFR 30.89 30.89 28.84
09/19/23
07:17
eGFR 28.84
Please clarify which of the following accurately represents the patient's CKD:
Stages of Chronic Kidney Disease*
Level Description GFR
G1 Normal or High >90
G2 Mildly decreased 60-89
G3a Mildly to moderately decreased 45-59
G3b Moderately to severely decreased 30-44
G4 Severely decreased 15-29
G5 Kidney failure <15
Use of terms such as suspected, likely, concern for, or probable (associated with a specific diagnosis that is being evaluated, monitored, or treated as if it exists) are acceptable and can be coded in the inpatient setting, when documented at the
time of discharge.
Thank you,
Isha Gonzalez RN, BSN
CDI Specialist
tiger text
Please use your independent medical judgment in providing your response.
*Source: Kidney Disease: Improving Global Outcomes (KDIGO) 2012
== END 2023-09-19 14:51 | disposition home or self-care (01) | DRG 603 ==
LOC: 3 WEST ACU 22:44
PROVIDERS: Clinical Nurse Specialist Family Health; Physician Assistant; ADMITTING PHYSICIAN Internal Medicine; ATTENDING PHYSICIAN Student in an Organized Health Care Education/Training Program; EMERGENCY PHYSICIAN Emergency Medicine
PROC: 5A09357 Assistance with Respiratory Ventilation, Less than 24 Consecutive Hours, Continuous Positive Airway Pressure (ICD-10-PCS; 2023-09-17)
DX: L03.115 Cellulitis of right lower limb (principal); N39.0 Urinary tract infection, site not specified; Z68.41 Body mass index [BMI] 40.0-44.9, adult; I13.0 Hypertensive heart and chronic kidney disease with heart failure and stage 1 through stage 4 chronic kidney disease, or unspecified chronic kidney disease; E11.42 Type 2 diabetes mellitus with diabetic polyneuropathy; H40.9 Unspecified glaucoma; E66.01 Morbid (severe) obesity due to excess calories; G47.33 Obstructive sleep apnea (adult) (pediatric); E11.22 Type 2 diabetes mellitus with diabetic chronic kidney disease; N18.32 Chronic kidney disease, stage 3b; I50.9 Heart failure, unspecified; N20.0 Calculus of kidney; K80.20 Calculus of gallbladder without cholecystitis without obstruction; E78.5 Hyperlipidemia, unspecified; J45.909 Unspecified asthma, uncomplicated; Z87.891 Personal history of nicotine dependence; Z96.651 Presence of right artificial knee joint; Z86.718 Personal history of other venous thrombosis and embolism; Z87.01 Personal history of pneumonia (recurrent); Z91.041 Radiographic dye allergy status; Z79.4 Long term (current) use of insulin
CPT/HCPCS: 74176; 80048; 80053; 80202; 81003; 81015; 82570; 82962; 83036; 83605; 83735; 84300; 85027; 85610; 86803; 87040; 87086; 93971; 96365; 97116; 97162; 97166; 97530; 99285